=== PATIENT | female | born 1970 | race Caucasian/White ===

== ENCOUNTER 2017-02-11 16:33 | Emergency (ER) | payer OTHER ==
[~2017-02-11] VITALS: Ht 170.2 cm; Wt 77.3 kg
[~2017-02-11 16:33] MED LIST: APRI 0.15 MG-0.1 TAB PO; CELEXA 20MG20 MG/TAB PO; HCTZ12.5TAB PO; XANAX 0.5MG0.5 MG PO
[2017-02-11 16:35] VITALS: TEMP 98.4
[2017-02-11] MEDS ORDERED: MOBIC15 MG PO (16:38)
[2017-02-11] MEDS ORDERED: CEPHALEXIN500 M1 PO (18:53)
[2017-02-11 19:11] VITALS: BP 166/81; PULSE 81
== END 2017-02-11 19:07 | disposition home or self-care (01) ==
LOC: COL.ER 16:33
DX: S91.312A Laceration without foreign body, left foot, initial encounter (principal); W25.XXXA Contact with sharp glass, initial encounter; Y92.009 Unspecified place in unspecified non-institutional (private) residence as the place of occurrence of the external cause; I10 Essential (primary) hypertension

== ENCOUNTER → 2017-03-23 | Outpatient (CLI) | payer OTHER ==
[~2017-03-23] MED LIST changes: +CEPHALEXIN500 M1 PO; +MOBIC15 MG PO
== END ==
LOC: MC.RAD 08:37
DX: Z12.31 Encounter for screening mammogram for malignant neoplasm of breast (principal)

== ENCOUNTER → 2018-04-18 | Outpatient (CLI) | payer BC | LOC: MC.RAD 09:55 | DX: Z12.31 Encounter for screening mammogram for malignant neoplasm of breast (principal) ==

== ENCOUNTER → 2018-04-23 | Outpatient (CLI) | payer BC | LOC: MC.RAD 09:36 | DX: R92.8 Other abnormal and inconclusive findings on diagnostic imaging of breast (principal) ==

== ENCOUNTER 2019-10-09 08:28 | Emergency (ER) | payer SELFPAY ==
[~2019-10-09] VITALS: Ht 170.2 cm; Wt 80.9 kg
[2019-10-09 10:13] LABS: BASO # 0.1 (0.0-0.2); BASO % 0.3 % (0.0-2.0); EOS % 0.2 % (0-4.0); GRAN # 15.3 (1.4-6.5); GRAN % 87.6 % (42.2-75.2); HEMATOCRIT 40.5 % (37.0-47.0); HEMOGLOBIN 13.8 g/dl (12.5-16.0); LYMPH # 1.1 (1.2-3.4); LYMPH % 6.1 % (20.0-51.0); MEAN CELL VOLUME 91 fl (80.0-100.0); MEAN CORPUSCULAR HEMOGLOBIN 31 pg (27.0-31.0); MEAN CORPUSCULAR HGB CONC 34 g/dl (33.0-37.0); MEAN PLATELET VOLUME 9.3 fl (7.4-10.4); MONO # 0.9 (0.1-0.6); MONO % 5.2 % (1.7-9.3); PLATELET COUNT 311 K/mm3 (130-400); RED BLOOD COUNT 4.45 M/mm3 (4.10-5.30); REDCELL DISTRIBUTION WIDTH-CV 12.4 % (11.5-14.5)
[2019-10-09 10:20] LABS: PARTIAL THROMBOPLASTIN TIME 31.7 SECONDS (26.0-37.0)
[2019-10-09 10:30] LABS: ALBUMIN 4.2 gm/dL (3.5-5.0); BILIRUBIN,TOTAL 0.4 mg/dL (0.0-1.0); CALCIUM 8.9 mg/dL (8.4-10.2); CREATININE, serum 0.78 (0.52-1.25); POTASSIUM 3.4 mmol/L (3.4-5.0); TOTAL PROTEIN 6.9 gm/dL (6.4-8.2)
[2019-10-09 11:44] VITALS: BP 130/69; PULSE 107; TEMP 98.3
== END 2019-10-09 11:54 | disposition short-term general hospital (02) ==
LOC: COL.ER 08:28
PROVIDERS: Emergency Medicine
DX: S82.402B Unspecified fracture of shaft of left fibula, initial encounter for open fracture type I or II (principal); S82.102B Unspecified fracture of upper end of left tibia, initial encounter for open fracture type I or II; I25.10 Atherosclerotic heart disease of native coronary artery without angina pectoris; I50.9 Heart failure, unspecified; I25.2 Old myocardial infarction; R40.2410 Glasgow coma scale score 13-15, unspecified time; Z23 Encounter for immunization; V43.52XA Car driver injured in collision with other type car in traffic accident, initial encounter; Y92.410 Unspecified street and highway as the place of occurrence of the external cause
CPT/HCPCS: J0690; J1170; J7030; Q4041; Q9967

== ENCOUNTER → 2020-03-25 | Outpatient (CLI) | payer BC | LOC: COL.RAD 10:39 | DX: S82.92 Unspecified fracture of left lower leg (principal); Z98.890 Other specified postprocedural states ==

== ENCOUNTER → 2021-04-07 | Outpatient (CLI) | payer BC | LOC: MC.RAD 12:48 | DX: Z12.31 Encounter for screening mammogram for malignant neoplasm of breast (principal) ==

== ENCOUNTER 2021-08-30 13:50 | Inpatient (IN) | payer BC ==
[~2021-08-30] VITALS: Ht 170.2 cm; Wt 70.4 kg
[2021-08-30 15:08] LABS: BASO % 0.3 % (0.0-2.0); EOS # 0.1 K/mm3 (0.0-0.7); EOS % 0.6 % (0.0-4.0); GRAN # 9.8 K/mm3 (1.4-6.5); GRAN % 82.3 % (42.2-75.2); HEMOGLOBIN 16.3 g/dl (12.5-16.0); LYMPH % 8.5 % (20.0-51.0); MEAN CELL VOLUME 90 fl (80.0-100.0); MEAN CORPUSCULAR HEMOGLOBIN 31 pg (27-31); MEAN CORPUSCULAR HGB CONC 35 g/dl (33.0-37.0); MEAN PLATELET VOLUME 9.9 fl (7.4-10.4); PLATELET COUNT 380 K/mm3 (130-400); RED BLOOD COUNT 5.24 M/mm3 (4.10-5.30); REDCELL DISTRIBUTION WIDTH-CV 12.1 % (11.5-14.5)
[2021-08-30 15:28] LABS: TROPONIN-I < 0.010 ng/mL (0.00-0.033)
[2021-08-30 15:35] LABS: ALANINE AMINOTRANSFERASE 804 U/L (0-55); ALBUMIN 4.1 gm/dL (3.5-5.0); ALKALINE PHOSPHATASE 181 U/L (40-150); ANION GAP 12 mmol/L (7-16); AST,SGOT 1163 U/L (5-34); BILIRUBIN,TOTAL 2.6 mg/dL (0.2-1.2); BLOOD UREA NITROGEN 13 mg/dL (10-20); C-REACTIVE PROTEIN 0.33 mg/dL (0.00-0.50); CALCIUM 8.9 mg/dL (8.4-10.2); CARBON DIOXIDE 22 mmol/L (22-29); CHLORIDE 104 mmol/L (98-107); CREATININE, serum 0.76 mg/dL (0.57-1.11); GLUCOSE 113 mg/dL (70-99); POTASSIUM 3.5 mmol/L (3.5-4.5); SODIUM 138 mmol/L (136-145); TOTAL PROTEIN 6.8 gm/dL (6.2-8.1)
[2021-08-30 19:05] LABS: LIPASE 22954 U/L (8-78)
[2021-08-30 20:00] VITALS: BP 133/60; PULSE 70; TEMP 98.7
[2021-08-31] VITALS (7 sets, daily range): BP systolic 119–139; BP diastolic 62–82; PULSE 83–105; TEMP 97.6–101.5
[2021-08-31 06:56] LABS: BASO % 0.3 % (0.0-2.0); EOS # 0.1 K/mm3 (0.0-0.7); EOS % 0.5 % (0.0-4.0); GRAN # 13.5 K/mm3 (1.4-6.5); GRAN % 88.6 % (42.2-75.2); HEMATOCRIT 41.8 % (37.0-47.0); LYMPH # 0.8 K/mm3 (1.2-3.4); LYMPH % 5.3 % (20.0-51.0); MEAN CELL VOLUME 92 fl (80.0-100.0); MEAN CORPUSCULAR HEMOGLOBIN 31 pg (27-31); MEAN CORPUSCULAR HGB CONC 34 g/dl (33.0-37.0); MEAN PLATELET VOLUME 10.4 fl (7.4-10.4); MONO # 0.8 K/mm3 (0.1-0.6); MONO % 4.9 % (1.7-9.3); PLATELET COUNT 296 K/mm3 (130-400); RED BLOOD COUNT 4.54 M/mm3 (4.10-5.30); REDCELL DISTRIBUTION WIDTH-CV 12.4 % (11.5-14.5)
[2021-08-31 07:09] LABS: HEMOGLOBIN 14.1 g/dl (12.5-16.0)
[2021-08-31 07:31] LABS: ALBUMIN 3.2 gm/dL (3.5-5.0); BILIRUBIN,TOTAL 1.4 mg/dL (0.2-1.2); CALCIUM 8.2 mg/dL (8.4-10.2); CREATININE, serum 0.68 mg/dL (0.57-1.11); POTASSIUM 3.8 mmol/L (3.5-4.5); TOTAL PROTEIN 5.2 gm/dL (6.2-8.1)
[2021-08-31 08:46] LABS: CHOLESTEROL RISK RATIO 2.2
[2021-09-01 04:43] VITALS: BP 146/83; PULSE 88; TEMP 98.8
[2021-09-01 06:52] LABS: BASO # 0.1 K/mm3 (0.0-0.2); BASO % 0.4 % (0.0-2.0); EOS # 0.4 K/mm3 (0.0-0.7); EOS % 2.8 % (0.0-4.0); GRAN # 11.3 K/mm3 (1.4-6.5); GRAN % 79.5 % (42.2-75.2); HEMATOCRIT 38.1 % (37.0-47.0); HEMOGLOBIN 12.9 g/dl (12.5-16.0); LYMPH # 1.3 K/mm3 (1.2-3.4); LYMPH % 9.4 % (20.0-51.0); MEAN CELL VOLUME 92 fl (80.0-100.0); MEAN CORPUSCULAR HEMOGLOBIN 31 pg (27-31); MEAN CORPUSCULAR HGB CONC 34 g/dl (33.0-37.0); MEAN PLATELET VOLUME 10.2 fl (7.4-10.4); MONO # 1.1 K/mm3 (0.1-0.6); MONO % 7.4 % (1.7-9.3); PLATELET COUNT 277 K/mm3 (130-400); RED BLOOD COUNT 4.14 M/mm3 (4.10-5.30); REDCELL DISTRIBUTION WIDTH-CV 12.3 % (11.5-14.5)
[2021-09-01 07:15] LABS: CALCIUM 8.1 mg/dL (8.4-10.2); CREATININE, serum 0.64 mg/dL (0.57-1.11); MAGNESIUM 1.7 mg/dL (1.6-2.6); POTASSIUM 3.5 mmol/L (3.5-4.5); TOTAL PROTEIN 5.1 gm/dL (6.2-8.1)
[2021-09-01 07:42] VITALS: BP 148/82; PULSE 82; TEMP 98.6
[2021-09-01 11:39] VITALS: BP 140/76; PULSE 84; TEMP 98.9
== END 2021-09-01 14:22 | disposition home or self-care (01) | DRG 439 ==
LOC: COL.ER 13:50 → MEDICAL 18:41
PROVIDERS: Internal Medicine Gastroenterology; Nurse Practitioner Primary Care; Student in an Organized Health Care Education/Training Program; ADMIT Internal Medicine
DX: K85.80 Other acute pancreatitis without necrosis or infection (principal); K80.10 Calculus of gallbladder with chronic cholecystitis without obstruction; K21.9 Gastro-esophageal reflux disease without esophagitis; F32.A Depression, unspecified; F41.9 Anxiety disorder, unspecified; I10 Essential (primary) hypertension; K76.9 Liver disease, unspecified; E87.6 Hypokalemia; E78.5 Hyperlipidemia, unspecified; K58.1 Irritable bowel syndrome with constipation; D18.00 Hemangioma unspecified site; Z87.891 Personal history of nicotine dependence; Z23 Encounter for immunization
CPT/HCPCS: 99223-AI; 99233-AI; J1170; J1650; J1885; J2405; J7030; J7120; Q9967

== ENCOUNTER 2021-09-22 05:26 | Day surgery (SDC) | payer BC ==
[~2021-09-22] VITALS: Ht 170.2 cm; Wt 67.2 kg
[2021-09-22] MEDS ORDERED: XANAX 0.5MG0.5 MG PO (06:24)
[2021-09-22 06:38] VITALS: BP 139/95; PULSE 79; TEMP 97.6
[2021-09-22] MEDS ORDERED: NORCO 325 MG-51 TAB PO (08:51)
[2021-09-22 09:15] VITALS: BP 140/77; PULSE 94; TEMP 97.1
--- NOTE | 2021-09-22 09:15 | NUR ---
The patient arrived back to [facility] from the recovery room at this time. The patient appears alert and oriented and denies any pain or nausea at this time. The patient has four bandaids to her abdomen that appear clean, dry and intact. The patient agrees to try some jello at this time. Post operative vital signs were started at this time. Will continue to monitor the patient.
[2021-09-22 09:30] VITALS: BP 141/69; PULSE 90
--- NOTE | 2021-09-22 09:30 | NUR ---
The patient appears to be tolerating the food and drink well. Vital signs appear stable. Call light is within reach. Will continue to monitor the patient.
[2021-09-22 09:45] VITALS: BP 138/82; PULSE 87
--- NOTE | 2021-09-22 09:45 | NUR ---
The patient requests more water at this time. The patient denies any pain or nausea at this time. Vital signs appear stable. Will continue to monitor the patient.
[2021-09-22 10:00] VITALS: BP 137/77; PULSE 87
--- NOTE | 2021-09-22 10:00 | NUR ---
The patient denies feeling the urge to void at this time. The patient was given a refill of water at this time. Vital signs appear stable. Call light is within reach. Will continue to monitor the patient.
[2021-09-22 10:30] VITALS: BP 135/72; PULSE 89
--- NOTE | 2021-09-22 10:35 | NUR ---
The patient ambulated to the bathroom with the stand by assistance of one nurse and appeared to tolerate the activity well. The patient voided without difficulty and voices a desire to be discharged home.
--- NOTE | 2021-09-22 10:54 | NUR ---
Discharge instructions were reviewed with the patient at this time. She verbalized understanding and has no questions for the nurse at this time. The patient's IV to her left hand was removed and a pressure dressing was applied to the site. The patient is dressed and ready to be escorted out.
--- NOTE | 2021-09-22 11:00 | NUR ---
The patient was escorted out via wheelchair to a private vehicle by REYNA Santoyo. The patient's belongings and discharge paperwork were sent with her. The patient's son is present to drive her home.
== END 2021-09-22 11:00 | disposition home or self-care (01) ==
LOC: SDCO 05:26
DX: K80.10 Calculus of gallbladder with chronic cholecystitis without obstruction (principal); K85.10 Biliary acute pancreatitis without necrosis or infection; F41.9 Anxiety disorder, unspecified; F32.A Depression, unspecified; Z79.899 Other long term (current) drug therapy; Z90.710 Acquired absence of both cervix and uterus; Z80.8 Family history of malignant neoplasm of other organs or systems; Z82.49 Family history of ischemic heart disease and other diseases of the circulatory system; Z83.3 Family history of diabetes mellitus
CPT/HCPCS: J0690; J1100; J1170; J1885; J2405; J2704; J3010; J7120; Q9967

== ENCOUNTER 2022-04-16 18:52 | Emergency (ER) | payer BC ==
[~2022-04-16] VITALS: Ht 170.2 cm; Wt 68.2 kg
[~2022-04-16 18:52] MED LIST changes: +NORCO 325 MG-51 TAB PO
[2022-04-16 19:07] VITALS: BP 154/101; TEMP 98
[2022-04-16] MEDS ORDERED: NORCO 325 MG-51 TAB PO (20:04)
[2022-04-16 20:23] VITALS: PULSE 76
== END 2022-04-16 20:24 | disposition home or self-care (01) ==
LOC: COL.ER 18:52
DX: S52.91XA Unspecified fracture of right forearm, initial encounter for closed fracture (principal); W01.0XXA Fall on same level from slipping, tripping and stumbling without subsequent striking against object, initial encounter; Y93.54 Activity, bowling